=== PATIENT | female | born 1940 | race Caucasian/White ===

== ENCOUNTER → 2017-08-06 | Outpatient (CLI) | payer MEDICARE, OTHER | LOC: RADPETMAIN 12:34 | PROVIDERS: ATTEND Internal Medicine Hematology & Oncology | DX: Z53.9 Procedure and treatment not carried out, unspecified reason (principal) ==

== ENCOUNTER → 2017-08-13 | Outpatient (CLI) | payer MEDICARE, OTHER ==
--- NOTE | 2017-08-15 07:50 | PE ---
Nuclear medicine PET/CT HISTORY: Breast carcinoma Patient received 14.4 mCi F-18 FDG intravenously. Delayed scanning was performed from the skull base to the mid thighs. Localization and attenuation correction CT scan was performed. No recent exams for comparison Neck and chest: No suspicious hypermetabolic uptake. No evident adenopathy. There are metallic densit y seen within the right breast. Axillary riky dissection eighth occurred, there are multiple metalli c clips present. No evident adenopathy. Suspect calcified granuloma right lower lobe. Apical scarring present right upper lobe, some subpleural bullous changes are present on the right. Abdomen pelvis: No evident mass. No suspicious hypermetabolic uptake. Bowel activity is likely physio logic. Cortical cyst associated with the posterior aspect of the left kidney.1 there is a hiatal terrance ia. Osseous structures: Within normal limits IMPRESSION: Metastasis is not evident. Postop changes.
== END | disposition home or self-care (01) ==
LOC: RADPETMAIN 11:15
PROVIDERS: ATTEND Internal Medicine Hematology & Oncology
DX: C50.211 Malignant neoplasm of upper-inner quadrant of right female breast (principal)
CPT/HCPCS: 78815; A9552